=== PATIENT | female | born 1980 | race African-American/Black ===

== ENCOUNTER 2018-11-26 10:24 | Emergency (ER) | payer OTHER, SELFPAY ==
--- NOTE | 2018-11-26 11:38 | RAD ---
RIGHT KNEE RADIOGRAPHS 4 VIEWS: DATE: 11/26/2018. PROVIDED CLINICAL HISTORY: Right knee pain status post injury. FINDINGS: Degenerative changes are seen. There is no evidence for a fracture or other acute osseous abnormalit y. If there is persistent clinical concern, conservative management and followup imaging are advised . IMPRESSION: As above. POS: [facility]
== END 2018-11-26 11:10 | disposition home or self-care (01) ==
LOC: ERS 10:24
DX: S16.1XXA Strain of muscle, fascia and tendon at neck level, initial encounter (principal); S80.01XA Contusion of right knee, initial encounter; I10 Essential (primary) hypertension; Z79.899 Other long term (current) drug therapy; V43.52XA Car driver injured in collision with other type car in traffic accident, initial encounter